=== PATIENT | female | born 1970 | race Hispanic/Latino ===

== ENCOUNTER 2020-01-20 06:10 | Day surgery (SDC) | payer MEDICAID ==
[2020-01-13 13:51] LABS: BASOPHILS % (AUTO) 0.3 % (0.0-5.0); EOSINOPHILS % (AUTO) 0.5 % (0.0-8.0); HEMATOCRIT 43.9 % (36-48); LYMPHOCYTES % (AUTO) 24.5 % (21.0-51.0); MEAN CORPUSCULAR HEMOGLOBIN 29.7 pg (27.0-33.0); MEAN CORPUSCULAR HGB CONC 33.5 g/dL (32.0-36.0); MEAN CORPUSCULAR VOLUME 88.7 fL (79-99); MONOCYTES % (AUTO) 4.7 % (3.0-13.0); NEUTROPHILS % (AUTO) 69.7 % (40.0-77.0); PLATELET COUNT (AUTO) 247 K/uL (130-400); RED BLOOD CELL COUNT(AUTO) 4.95 MIL/uL (4.00-5.50); RED CELL DISTRIBUTION WIDTH 12.5 % (11.0-15.5); WHITE BLOOD COUNT (AUTO) 6.4 K/uL (4.8-10.8)
[2020-01-13 14:00] LABS: POTASSIUM 4.2 mmol/L (3.5-5.1)
[2020-01-13 14:13] LABS: CREATININE 0.9 mg/dL (0.5-1.5)
[2020-01-19 11:16] VITALS: BP 118/71
[~2020-01-20] VITALS: Ht 163.8 cm; Wt 105.7 kg
[2020-01-20] VITALS (18 sets, daily range): BP systolic 105–131; BP diastolic 60–82
[2020-01-20] MEDS: CEFAZOLIN SODIUM 1 GM VIAL IVP SCH ×2 (06:00→09:40)
[~2020-01-20 06:10] MED LIST: FLUO40CA7 PO; LORA2TAB80 PO; QUET300T2 PO; SODIUM CHLORIDE 0.9% 1000ML 1,000 ML IV SCH
[2020-01-20] MEDS ORDERED: LACTATED RINGERS 1000ML 1,000 ML IV ONE (07:15)
[2020-01-20] MEDS ORDERED: EPINEPHRINE 1 MG/ML 30ML VIAL IJ ONE (08:08)
[2020-01-20] MEDS ORDERED: SUCCINYLCHOLINE CHLORIDE 20 MG/ML 10 ML VIAL ONE (08:19)
[2020-01-20] MEDS ORDERED: LIDOCAINE PF 2% 5ML ABBOJECT ONE (08:19)
[2020-01-20] MEDS ORDERED: DEXAMETHASONE SOD PHOSPHATE 10MG/ML 1ML VIAL ONE (08:20)
[2020-01-20] MEDS ORDERED: GLYCOPYRROLATE 1 MG/5 ML SYRINGE ONE (08:20)
[2020-01-20] MEDS ORDERED: NEOSTIGMINE 5MG/5ML SYR IV ONE (08:21)
[2020-01-20] MEDS ORDERED: MIDAZOLAM HCL 1 MG/ML 2ML VIAL ONE ×2 (08:21→08:46)
[2020-01-20] MEDS ORDERED: FENTANYL CITRATE PF 50 MCG/1 ML 2ML VIAL ONE (08:21)
[2020-01-20] MEDS ORDERED: ONDANSETRON HCL 4 MG/2 ML VIAL ONE ×2 (08:21→12:10)
[2020-01-20] MEDS ORDERED: PROPOFOL 10 MG/ML 20ML VIAL IV ONE ×2 (08:21→09:10)
[2020-01-20] MEDS ORDERED: ROCURONIUM 10MG/1ML SYR 10 MG/ML ML ONE (08:21)
[2020-01-20] MEDS ORDERED: ROPIVACAINE 0.5% 5MG/ML 30ML IJ ONE (08:27)
[2020-01-20] MEDS ORDERED: MEPERIDINE-PF 25 MG/ML SYG ONE ×2 (11:10→11:33)
== END 2020-01-20 13:15 | disposition home or self-care (01) ==
LOC: DAH 06:10
PROVIDERS: ATTEND Orthopaedic Surgery
DX: M75.111 Incomplete rotator cuff tear or rupture of right shoulder, not specified as traumatic (principal); M75.01 Adhesive capsulitis of right shoulder; Z20.828 Contact with and (suspected) exposure to other viral communicable diseases; M25.811 Other specified joint disorders, right shoulder; M25.711 Osteophyte, right shoulder; E66.01 Morbid (severe) obesity due to excess calories; Z88.8 Allergy status to other drugs, medicaments and biological substances; Z79.899 Other long term (current) drug therapy; Z68.38 Body mass index [BMI] 38.0-38.9, adult
CPT/HCPCS: 29826; 29827; 36415; 64415; 76942; 80048; 85025; 93005; A4215; A4221; A4222; A4223; A4452; A4565; A4649 ×5; A4663; A4930 ×2; A6260; C1713; C9803; J0171; J0330; J0690; J1100; J2001; J2175 ×2; J2250 ×2; J2405 ×2; J2704 ×2; J2710; J2795; J3010; J3490; J7120 ×2; U0003